=== PATIENT | female | born 1995 | race Caucasian/White ===

== ENCOUNTER 2024-06-15 20:41 | Emergency (ER) | payer OTHER, SELFPAY ==
[2024-06-15 20:47] VITALS: BP 106/64; PULSE 86; RESP 18; TEMP 36.4; O2SAT 99; BMI 18.3
--- NOTE | 2024-06-15 20:52 | ED_ITS ---
HPI - General Adult General Chief complaint: General Medical Stated complaint: abd pain / headaches Time Seen by Provider: 06/16/24 00:25 Source: patient Mode of arrival: ambulatory Limitations: no limitations History of Present Illness ED Provider: HPI narrative: Patient with chronic epigastric pain for last 5 years off and on gets worse when she eats something localized to epigastric area sometimes gets nausea has not seen any wood heel attacher or PCP for this no pain in the right upper quadrant no vomiting no fever no chills patient comes here was having more pain lately for last 2 days patient does not drink alcohol or smokes Related Data Previous Rx's ?Medication ?Instructions ?Recorded omeprazole 40 mg capsule,delayed 40 mg PO DAILY #30 caps 06/16/24 release sucralfate 1 gram tablet 1 g PO TID #90 tabs 06/16/24 Allergies Allergy/AdvReac Type Severity Reaction Status Date / Time No Known Allergies Allergy Verified 06/16/24 14:31 Review of Systems 2 Review of Systems: Yes all other systems are reviewed and are negative [facility] Social History Social History Do you have a plan to hurt others: No Plan Physical Exam ED Vital Signs: Vital Signs - 24 hr 06/15/24 20:47 06/16/24 00:12 06/16/24 01:50 Temperature 97.6 F 98.3 F 97.7 F Pulse Rate 86 76 77 Respiratory Rate 18 16 16 Blood Pressure 106/64 93/61 90/57 L Pulse Oximetry 99 96 98 Oxygen Delivery Method Room Air Room Air Room Air 06/16/24 01:51 Temperature 97.7 F Pulse Rate 77 Respiratory Rate 16 Blood Pressure 90/57 L Pulse Oximetry 98 Oxygen Delivery Method Room Air BMI result Body Mass Index 18.3 Appearance: Alert. Oriented X3. No acute distress. Eyes: No pallor or icterus ENT: Pharynx normal. Oral Mucosa moist Neck: Normal inspection. Neck supple. CVS: Normal heart rate and rhythm. Pulses normal. Respiratory: No respiratory distress. Equal air entry bilateral, no wheezing/rales/rhonchi Abdomen: Soft and tenderness in epigastric area Bowel sounds are present, no mass palpable, no CVA tenderness Edmonds sign neg Skin: Skin warm and dry. Normal skin color. Normal skin turgor. Extremities: No lower extremity edema. No calf tenderness Neuro: Oriented X 3. Course Course Course Narrative: RMBlake; 28-year-old female history of migraine presents to ED for abdominal pain with nausea vomiting and also headache migraine exacerbation. Patient denies any URI symptoms or genitourinary symptoms. Labs UA SARs strep ordered Medications Administered Discontinued Medications Generic Name Dose Route Start Last Admin Trade Name Freq PRN Reason Stop Dose Admin Al Hydroxide/Mg Hydroxide 30 ml 06/16/24 00:41 06/16/24 00:52 Magnesium Hydrox/Alum Hydrox 30 Ml Oral.Susp PO 06/16/24 00:42 30 ml ONCE ONE Administration Omeprazole 40 mg 06/16/24 00:41 06/16/24 00:52 Omeprazole 40 Mg Capsule.Dr PO 06/16/24 00:42 40 mg ONCE ONE Administration Medical Decision Making Medical Decision Making [facility] Narrative: Patient likely with gastritis no pain in the right upper quadrant no nausea no vomiting at this time patient feels better after taking Maalox and Pepcid will discharge patient home on Prilosec and sucralfate advised to follow with GI Differential Diagnosis Differential Diagnoses: The differential diagnosis associated with the presentation includes Gastritis/pancreatitis/cholecystitis/urine Lab Data [facility] Lab Attestation statement: I reviewed the patient's lab results. 06/15/24 21:18 06/15/24 21:18 Labs: Lab Results 06/15/24 06/15/24 06/16/24 Range/Units 21:17 21:18 00:50 WBC 5.5 (4.8-10.8) X10*3/uL RBC 4.79 (4.20-5.50) X10*6/uL Hgb 12.0 (12.0-16.0) g/dl Hct 37.9 (37.0-47.0) % MCV 79.1 L (80.0-98.0) fL MCH 25.1 L (27.0-33.0) pg MCHC 31.7 (31.0-35.0) g/dl RDW 18.0 H (11.0-16.0) % Plt Count 168 (160-400) X10*3/uL MPV 9.7 (9.4-12.3) fL Immature Gran % (Auto) 0.2 (0.0-0.4) % Neut % (Auto) 80.5 H (45-73) % Lymph % (Auto) 9.1 L (20-40) % [place] % (Auto) 7.3 (2-11) % Eos % (Auto) 2.7 (0-4) % Baso % (Auto) 0.2 (0-2) % Lymph # (Auto) 0.5 L (1.2-4.9) X10*3/uL [place] # (Auto) 0.4 (0.1-1.2) X10*3/uL Eos # (Auto) 0.2 (0.0-0.4) X10*3/uL Baso # (Auto) 0.0 (0.0-0.2) X10*3/uL Abs Immat Gran (auto) 0.01 (0.00-0.03) X10*3/uL Absolute Neuts (auto) 4.4 (2.0-8.3) x10*3/uL Absolute Nucleated RBC 0.000 (0.0-0.012) X10*3/uL Nucleated RBC % (auto) 0.0 (0.0-0.2) /100WBC Sodium 139 (135-145) mmol/L Potassium 3.8 (3.3-5.1) mmol/L Chloride 107 (96-108) mmol/L Carbon Dioxide 24 (22-29) mmol/L Anion Gap 12 (12-20) BUN 19 H (9-16) mg/dL Creatinine 0.72 (0.5-1.4) mg/dL Estim Creat Clear Calc 93.3 Estimated GFR > 60 Random Glucose 104 (60-115) mg/dL Calcium 8.6 (8.4-10.2) mg/dL Total Bilirubin 0.7 (0.0-1.0) mg/dL AST 21 (5-31) U/L ALT 25 (0-31) U/L Alkaline Phosphatase 44 (39-117) U/L Total Protein 7.7 (6.5-8.0) g/dL Albumin 4.3 (3.5-5.0) g/dL Lipase 14 (8-78) U/L Beta HCG, Quant < 2 mIU/mL Urine Color Yellow Urine Appearance Clear Urine pH 6.0 (5.0-9.0) Ur Specific [place] >= 1.030 H (1.005-1.025) Urine Protein 30 (1+) H (Neg-Trace) mg/dL Urine Glucose (UA) Negative (Negative) mg/dL Urine Ketones Negative (Negative) mg/dL Urine Blood Negative (Negative) Urine Nitrite Negative (Negative) Ur Leukocyte Esterase Negative (Negative) Urine RBC 0-2 (0-2) /HPF Urine WBC 0-5 (0-5) /HPF Ur Squamous Epith Cells 11-20 (0-2) /HPF Urine Bacteria None Seen (None Seen) Hyaline Casts 3-5 (0-2) /LPF Influenza Type A (PCR) NEGATIVE (Negative) Influenza Type B (PCR) NEGATIVE (Negative) RSV RNA Qual (PCR) NEGATIVE (Negative) SARS-CoV-2 RNA (RT-PCR) NEGATIVE (Negative) S. pyogenes GrpA SUDHEER Negative (Negative) Discharge Plan Discharge Clinical Impression: Acute gastritis Patient Disposition: Home, Self-Care Instructions: Gastritis (ED) Additional Instructions: Avoid fried and spicy food Medication for acid reflux as prescribed Follow up with wood heel attacher/PCP Prescriptions: New omeprazole 40 mg capsule,delayed release(DR/EC) 40 mg PO DAILY Qty: 30 0RF sucralfate 1 gram tablet 1 g PO TID Qty: 90 0RF Referrals: Maria Luz Schulz MD [Physician] - 2 weeks Interventions: ED Discharge Assessment Last Done: 06/16/24 01:51 Discharge Date/Time: 06/16/24 01:52 Print Language: Serbian
[2024-06-15 21:36] LABS: MANUAL DIFF FLAG NO
[2024-06-15 21:38] LABS: Basophils Percent Auto 0.2 % (0-2); Eosinophils Absolute Auto 0.2 X10*3/uL (0.0-0.4); Eosinophils Percent Auto 2.7 % (0-4); Hematocrit 37.9 % (37.0-47.0); Imm Gran Abs Auto 0.01 X10*3/uL (0.00-0.03); Imm Gran Pct Auto 0.2 % (0.0-0.4); Lymphocytes Absolute Auto 0.5 X10*3/uL (1.2-4.9); Lymphocytes Percent Auto 9.1 % (20-40); Mean Corpuscular HGB Conc 31.7 g/dl (31.0-35.0); Mean Corpuscular Hemoglobin 25.1 pg (27.0-33.0); Mean Corpuscular Volume 79.1 fL (80.0-98.0); Mean Platelet Volume 9.7 fL (9.4-12.3); Monocytes Absolute Auto 0.4 X10*3/uL (0.1-1.2); Monocytes Percent Auto 7.3 % (2-11); Neutrophils Absolute Auto 4.4 x10*3/uL (2.0-8.3); Neutrophils Percent Auto 80.5 % (45-73); Platelet Count 168 X10*3/uL (160-400); Red Blood Count 4.79 X10*6/uL (4.20-5.50); White Blood Count 5.5 X10*3/uL (4.8-10.8)
[2024-06-15 21:58] LABS: Alanine Aminotransferase 25 U/L (0-31); Albumin Level 4.3 g/dL (3.5-5.0); Alkaline Phosphatase 44 U/L (39-117); Anion Gap 12 (12-20); Aspartate Amino Transferase 21 U/L (5-31); Bilirubin Total 0.7 mg/dL (0.0-1.0); Blood Urea Nitrogen 19 mg/dL (9-16); Calcium 8.6 mg/dL (8.4-10.2); Carbon Dioxide 24 mmol/L (22-29); Chloride 107 mmol/L (96-108); Creatinine Clr Calc Pharmacy 93.3; Estimated Glomerular Filt Rate > 60; Glucose Random 104 mg/dL (60-115); Lipase 14 U/L (8-78); Potassium 3.8 mmol/L (3.3-5.1); Sodium 139 mmol/L (135-145); Total Protein 7.7 g/dL (6.5-8.0)
[2024-06-15 22:00] LABS: IDNOW Serial# 58CA691E; Strep A Nucleic Acid Negative (Negative)
[2024-06-15 22:00] LABS: HCG Quantitative < 2 mIU/mL
[2024-06-15 23:59] LABS: Influenza A PCR NEGATIVE (Negative); Influenza B PCR NEGATIVE (Negative); Resp Syncy Virus RNA Qual PCR NEGATIVE (Negative); SARS COV2 PCR INHOUSE NEGATIVE (Negative)
[2024-06-16 00:12] VITALS: BP 93/61; PULSE 76; RESP 16; TEMP 36.8; O2SAT 96
--- OUTSIDE RECORDS SUMMARY | 2024-06-16 00:25 | XMS_ITS | Clinical Summary ---
Author Organization [facility] Address [address] [place] [address] Care Team Providers Care Vegetable Trimmer Name Role Phone Daniella Prasad DMD Primary Care Provider [phone] Source Comments PLEASE NOTE, if this patient is a minor, it may be UNLAWFUL to discuss sensitive information that is contained in these records (such as FAMILY PLANNING, MENTAL HEALTH or SUBSTANCE ABUSE) with the minor patient's parent or other person without the patient's specific authorization.[facility] Medications chlorhexidine gluconate (PERIDEX) 0.12 % solutionIndicati ons:Pericoroniti s Swish and spit 15 mL 2 (two) times daily 473 mL 08/25/2019 Active acetaminophen (TYLENOL) 500 mg tabletIndication s:Pericoronitis Take 1 Tab by mouth every 6 (six) hours as needed for pain 60 Tab 08/25/2019 Active ibuprofen 600 mg tablet Take 1 Tablet by mouth 4 (four) times daily as needed for pain 20 Tablet 12/23/2020 Active Social History Tobacco Use Types Packs/Day Years Used Date Smoking Tobacco: Never Assessed Social Connections Answer Date Recorded Social Connections and Isolation 0 12/23/2020 Financial Resource Strain Answer Date R ecorded Financial Resource Strain 0 2020 Stress Answer Date Recorded Stress 0 12/23/2020 Physical Activity Answer Date Recorded Physical Activity 0 12/23/2020 Food Insecurity Answer Date Recorded Food 0 12/23/2020 Transportation Needs Answer Date Record ed Transportation 0 12/23/2020 Housing Stability Answer Date Recorded Housing 0 12/23/2020 Safety and Environment Answer Date Thompson rded Safety 0 12/23/2020 Utilities Answer Date Recorded Utilities 0 12/23/2020 Employment Answer Date Recorded Employment 0 12/23/2020 Comments Unknown Sex and Gender Information Value Date Recorded Sex Assigned at Not on file Legal Sex Female 7:13 AM PDT Gender Identity Not on file Sexual Orientation Not on file Plan of Treatment Not on file Insurance [employer] [place] DENT[place] Care Teams Vegetable Trimmer Relationship Specialty Start Date End Date Daniella Prasad DMD [address] [place] [address] PCP - General 06/18/20
--- NOTE | 2024-06-16 00:51 | MHC.EDTECH ---
This pct just assumed care of Patient ,vitals taken ,Patient urine sample collected and sent to lab
[2024-06-16] MEDS: Omeprazole 40 MG CAPSULE.DR PO (00:52)
[2024-06-16] MEDS: Magnesium Hydrox/Alum Hydrox 30 ML ORAL.SUSP PO (00:52)
[2024-06-16 01:02] LABS: Appearance Urine Clear; Color Urine Yellow; Glucose Urine UA Negative (Negative); Leukocyte Esterase Urine Negative (Negative); Nitrite Urine Negative (Negative); Specific Gravity - Urine >= 1.030 (1.005-1.025); UMIC TRIGGER UACC YES; Urine Blood Negative (Negative); Urine Ketones Negative (Negative); Urine Protein 30 (1+) mg/dL (Neg-Trace)
[2024-06-16 01:14] LABS: Bacteria Urine None Seen (None Seen); RBC Urine 0-2 /HPF (0-2); WBC Urine 0-5 /HPF (0-5)
[2024-06-16 01:50] VITALS: BP 90/57; PULSE 77; RESP 16; TEMP 36.5; O2SAT 98
[2024-06-16 01:51] VITALS: BP 90/57; PULSE 77; RESP 16; TEMP 36.5; O2SAT 98
== END 2024-06-16 01:52 | disposition home or self-care (01) ==
PROVIDERS: Physician Assistant; Emergency Provider Internal Medicine; PCP Internal Medicine
DX: K29.70 Gastritis, unspecified, without bleeding (principal); R11.2 Nausea with vomiting, unspecified; R51.9 Headache, unspecified; Z03.818 Encounter for observation for suspected exposure to other biological agents ruled out
CPT/HCPCS: 0241U; 80053; 81001; 81003; 83690; 84702; 85025; 87651; 99283

== ENCOUNTER 2024-06-16 14:14 | Emergency (ER) | payer OTHER, SELFPAY ==
--- NOTE | ~2024-06-16 | CT_ITS ---
EXAMINATION: CT HEAD WITHOUT IV CONTRAST HISTORY: intractable headaches. TECHNIQUE: Unenhanced helical CT of the head was performed per standard departmental protocol. Coronal and sagittal reformats of the head were also evaluated. One or more of the following techniques was used for dose reduction: Automated exposure control, adjustment of the mA and/or kV according to patient size, use of iterative reconstruction technique. DLP: 585 mGy-cm COMPARISON: There are no prior studies for comparison. FINDINGS: BRAIN: The brain parenchyma is unremarkable. There is normal barton/white differentiation. The ventricular system is normal in size and configuration. There is no mass effect or midline shift. No intra- or extra-axial fluid collections are identified. SINUSES: The visualized paranasal sinuses are clear. The mastoid air cells and middle ear cavities are well pneumatized. ORBITS: The visualized orbits are unremarkable. BONES/SOFT TISSUES: The extracranial soft tissues are unremarkable. The calvarium is intact. No suspicious lytic or sclerotic lesions. CT/CT head/brain wo IV con IMPRESSION: Unremarkable unenhanced head CT. Electronically signed by: Tobin Millan MD 06/16/2024 03:12 PM EDT
[2024-06-16 14:28] VITALS: BP 92/47; PULSE 87; RESP 18; TEMP 36.6; O2SAT 98; BMI 18.1
[2024-06-16 16:48] LABS: MANUAL DIFF FLAG NO
[2024-06-16 16:53] LABS: Basophils Percent Auto 0.3 % (0-2); Eosinophils Absolute Auto 0.1 X10*3/uL (0.0-0.4); Eosinophils Percent Auto 4.8 % (0-4); Hematocrit 34.4 % (37.0-47.0); Hemoglobin 11.1 g/dl (12.0-16.0); Imm Gran Abs Auto 0.01 X10*3/uL (0.00-0.03); Imm Gran Pct Auto 0.3 % (0.0-0.4); Lymphocytes Absolute Auto 0.6 X10*3/uL (1.2-4.9); Lymphocytes Percent Auto 22.1 % (20-40); Mean Corpuscular HGB Conc 32.3 g/dl (31.0-35.0); Mean Corpuscular Hemoglobin 25.5 pg (27.0-33.0); Mean Corpuscular Volume 79.1 fL (80.0-98.0); Mean Platelet Volume 9.5 fL (9.4-12.3); Monocytes Absolute Auto 0.4 X10*3/uL (0.1-1.2); Monocytes Percent Auto 13.8 % (2-11); Neutrophils Absolute Auto 1.7 x10*3/uL (2.0-8.3); Neutrophils Percent Auto 58.7 % (45-73); Platelet Count 149 X10*3/uL (160-400); Red Blood Count 4.35 X10*6/uL (4.20-5.50); Red Cell Distribution Width 17.6 % (11.0-16.0); White Blood Count 2.9 X10*3/uL (4.8-10.8)
[2024-06-16 17:11] LABS: Alanine Aminotransferase 19 U/L (0-31); Albumin Level 4.1 g/dL (3.5-5.0); Alkaline Phosphatase 44 U/L (39-117); Anion Gap 10 (12-20); Aspartate Amino Transferase 18 U/L (5-31); Bilirubin Total 0.3 mg/dL (0.0-1.0); Blood Urea Nitrogen 16 mg/dL (9-16); Calcium 8.7 mg/dL (8.4-10.2); Carbon Dioxide 25 mmol/L (22-29); Chloride 109 mmol/L (96-108); Creatinine Clr Calc Pharmacy 106.1; Estimated Glomerular Filt Rate > 60; Glucose Random 101 mg/dL (60-115); HCG Quantitative < 2 mIU/mL; Magnesium 2.4 mg/dL (1.6-2.6); Potassium 3.9 mmol/L (3.3-5.1); Sodium 140 mmol/L (135-145); Total Protein 7.4 g/dL (6.5-8.0)
[2024-06-16 17:26] LABS: Influenza A PCR NEGATIVE (Negative); Influenza B PCR NEGATIVE (Negative); Resp Syncy Virus RNA Qual PCR NEGATIVE (Negative); SARS COV2 PCR INHOUSE NEGATIVE (Negative)
--- OUTSIDE RECORDS SUMMARY | 2024-06-16 22:05 | XMS_ITS | Clinical Summary ---
Author Organization [facility] it Address [address] [place] [address] Care Team Providers Care Estate Planner Name Role Phone Ritchie Diane MD Primary Care Provi stephen Surgical History Surgery Date Site/Laterality Comments OTHER SURGICAL HISTORY PROCEDURE: [place] UNLISTED OPHTHALMOLOGICAL SERVICE/PROCEDURE; COMMENT: x2 in [place]. poor historian with type of surgery or congenital eye defect SECTION 05/29/2016 PROCEDURE: HISTORICAL DELIVERY; COMMENT: 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 right eye more stable. 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; COMMENT: left leg posterior - calf Family History Medical History Relation Name Comments No Known Problems Brother 1 No Known Problems Brother 2 No Known Problems Father No Known Problems Maternal Grandfather No Known Problems Maternal Grandmother No Known Problems Mother No Known Problems Paternal Grandfather No Known Problems Paternal Grandmother No Known Problems Sister 1 No Known Problems Sister 2 No Known Problems Sister 3 Breast cancer Neg Hx Colon cancer Neg Hx Ovarian cancer Neg Hx Relation Name Status Comments Brother 1 Alive Brother 2 Alive Father Alive Maternal Grandfather Alive Maternal Grandmother Alive Mother Alive Paternal Grandfather Paternal Grandmother Sister 1 Alive Sister 2 Alive Sister 3 Alive Social History Tobacco Use Types Packs/Day Years Used Date Smoking Tobacco: Never Smokeless Tobacco: Never Alcohol Use Standard Drinks/Week Comments No 0 (1 standard drink = 0.6 oz pur e alcohol) Comments Unknown Sex and Gender Information Value Date Recorded Sex Assigned at Not on file Legal Sex Female 1:37 AM EST Gender Identity Not on file Sexual Orientation Not on file Obstetrics History Plan of Treatment Health Maintenance Due Date Last Done Comments Hepatitis B Vaccines (1 of 3 - 19+ 3-dose series) 2013 Cervical Cancer Screening: P ap Smear 10/31/2020 10/31/2017 COVID-19 Vaccine (1 - 2023-2 5 season) 2023 Influenza Vaccine (#1) 2023 DTaP,Tdap,and Td Vaccines (2 - Td or Tdap) 11/15/2027 11/14/2017 HIB Vaccines Aged Out No longer eligi ble based on patient's age to complete this topic HPV Vaccines Aged Out No longer eligi ble based on patient's age to complete this topic Hepatitis A Vaccines Aged Out No long er eligible based on patient's age to complete this topic IPV Vaccines Aged Out No longer eligi ble based on patient's age to complete this topic MMR Vaccines Aged Out No longer eligi ble based on patient's age to complete this topic Meningococcal ACWY Vaccine Aged Out N o longer eligible based on patient's age to complete this topic Meningococcal B Vacine Aged Out No lo nger eligible based on patient's age to complete this topic Pneumococcal Vaccine: Pediat rics (0 to 5 Years) and At-Risk Patients (6 to 64 Years) Aged Out No longer eligi ble based on patient's age to complete this topic RSV Immunization Patients Un stephen 20 months Aged Out No longer eligible b ased on patient's age to complete this topic Varicella Vaccines Aged Out No longer eligible based on patient's age to complete this topic Procedures Procedure Name Priority Date/Time Associated Diagnosis Comments PAP SMEAR Routine 10/31/2017 from Last 3 Months or Most Recently Relevant to Health Maintenance Results * Pap smear (10/31/2017) 10/31/2017 Narrative HISTORICAL TESTING LAB RESULTING AGENCY - 11/06/2017 1:00 PM EDT [id number] THINPREP PAP, IMAGED: NEGATIVE FOR SQUAMOUS INTRAEPITHELIAL LESION AND MALIGNANCY ??. MARIANNA PROCTOR(ASCP) (CASE ELECTRONICALLY SIGNED 11 06 2017) ADEQUACY: SATISFACTORY. ENDOCERVICAL/TRANSFORMATION ZONE COMPONENT PRESENT. SOURCE: THINPREP PAP HPV IF ASCUS, CERVICAL, IMAGED: CLINICAL INFORMATION: HPV IF DIAGNOSIS OF ASCUS. Z12.4, Z34.82, , PAP HX: NEGATIVE Karlene Jackson CN LAB CYTOLOGY ORDERABLES Final Result HISTORICAL TESTING LAB RESULTING AGENCY from Last 3 Months or Most Recently Relevant to Health Maintenance Care Teams Estate Planner Relationship Specialty Start Date End Date Ritchie Diane MD [address] [place] [address] [place] [address] PCP - General Internal Medicine 11/07/18
--- OUTSIDE RECORDS SUMMARY | 2024-06-16 22:07 | XMS_ITS | Encounter Summary ---
Author Organization [employer] Address [address] [facility] 7 [place] [address] Care Team Providers Care Collar Feller Name Role Phone Heather Cloud MD Primary Care Provider [phone] Reason for Visit * Reason Onset Date Comments Nurse Triage 06/16/2024 Encounter Details Date Type Department Care Team (Late st Contact Info) Description 06/16/2024 Telephone [facility] [address] [place] [address] Heather Cloud MD [address] [place] [address] Nurse Triage Social History Tobacco Use Types Packs/Day Years Used Date Smoking Tobacco: Never Assessed Comments Unknown Sex and Gender Information Value Date Recorded Sex Assigned at Female 02/06/2022 10:39 AM EDT Legal Sex Female 10:39 AM EDT Gender Identity Female 02/06/2022 10:39 AM EDT Sexual Orientation Straight 02/06/2022 10 :39 AM EDT documented as of this encounter Miscellaneous Notes * Telephone Encounter - Alecia Art RN - 06/16/2024 12:20 PM EDT Call returned to Bonnie Brown to triage below. Reports having STEVENSON x 2 weeks. Per pt in past 3 days having vomiting. Pt denies any light sensitivity or sound sensitivity. Per pt STEVENSON is frontal. Pt denies any worsening blurry vision or eye pain. Pt denies any fever. Pt reports using Excedrin, ibuprofen. Denies any bloody or coffee ground emesis. No ear pain or ST. Pt advised of disposition, no appts in [facility]. Agrees to seek [facility]. Reviewed [facility] operating hours and that wait times vary. Reviewed home care advise, ER precautions and reasons to call back. Protocol Used: Headache (Adult) Protocol-Based Disposition: Callback or Video Visit by PCP within 1 Hour Video visit offer not recorded Positive Triage Question: * Severe headache and vomiting * All higher-acuity triage questions were negative Care Advice Discussed: * Reassurance and Education - Migraine Headache * Cold Pack for Headache * Reasons To Call Back - Severe headache lasts over 2 hours after pain medicine - Stiff neck occurs (can't touch chin to chest) - You become worse * Telephone Encounter - Rahul Wilhelm - 06/16/2024 11:14 AM EDT Symptom: Headache Outcome: Schedule an urgent appointment (within 4 hours) or talk to a nurse or provider soon Reason: Getting worse The caller accepted this outcome. documented in this encounter Plan of Treatment Not on file documented as of this encounter Visit Diagnoses Not on filedocumented in this encounter Care Teams Collar Feller Relationship Specialty Start Date End Date Heather Cloud MD [address] [place] [id number] PCP - General Internal Medicine 02/04/21 documented as of this encounter
--- OUTSIDE RECORDS SUMMARY | 2024-06-16 22:07 | XMS_ITS | Encounter Summary ---
Author Organization [employer] Address [address] [place] [address] 7[address] [place] [address] Care Team Providers Care Marketing Area Manager Name Role Phone Heather Cloud MD Primary Care Provider [phone] Encounter Details Date Type Department Care Team (Late st Contact Info) Description 06/16/2024 Orders Only [facility] External Provider, [facility] Social History Tobacco Use Types Packs/Day Years Used Date Smoking Tobacco: Never Assessed Comments Unknown Sex and Gender Information Value Date Recorded Sex Assigned at Female 02/06/2022 10:39 AM EDT Legal Sex Female 10:39 AM EDT Gender Identity Female 02/06/2022 10:39 AM EDT Sexual Orientation Straight 02/06/2022 10 :39 AM EDT documented as of this encounter Plan of Treatment Not on file documented as of this encounter Procedures Procedure Name Priority Date/Time Associated Diagnosis Comments CT HEAD WO CONTRAST Routine 06/16/2024 2 :30 PM EDT documented in this encounter Results * CT Head w/o Contrast (06/16/2024 2:30 PM EDT) Anatomical Region Laterality Modality Head, Neck Computed Tomogra phy 06/16/2024 2:30 PM EDT Narrative 06/16/2024 3:14 PM EDT ? [facility] ?[address] ?[place] [address] ? CT Scan Report ? Signed ? Patient: Nesterchuk,Bonnie ?MR#: [id number] ?? [id number] ? : 1995 ?Acct:[id number] ? Age/Sex: 28 / F ?ADM Date: 03/10/25 ? Loc: HO.ED ? Attending Dr: ? Ordering Physician: Halle Chua ?? Date of Service: 06/16/24 ?? Procedure(s): CT head/brain wo IV con ?? Accession Number(s): [id number] ? cc: Ritchie Diane MD; Halle Chua ? Report Number: ?? [id number]: Total DLP = ??585.00 mGy-cm ?? EXAMINATION: CT HEAD WITHOUT IV CONTRAST ? HISTORY: intractable headaches. ? TECHNIQUE: ? Unenhanced helical CT of the head was performed per standard ?? departmental protocol. Coronal and sagittal reformats of the head were ?? also evaluated. One or more of the following techniques was used for ?? dose reduction: Automated exposure control, adjustment of the mA and/or ?? kV according to patient size, use of iterative reconstruction technique. ? DLP: 585 mGy-cm ? COMPARISON: There are no prior studies for comparison. ? FINDINGS: ? BRAIN: ??The brain parenchyma is unremarkable. There is normal ?? barton/white differentiation. The ventricular system is normal in size ?? and configuration. ??There is no mass effect or midline shift. ??No ?? intra- or extra-axial fluid collections are identified. ? SINUSES: The visualized paranasal sinuses are clear. ??The mastoid air ?? cells and middle ear cavities are well pneumatized. ? ORBITS: The visualized orbits are unremarkable. ? BONES/SOFT TISSUES: The extracranial soft tissues are unremarkable. The ?? calvarium is intact. No suspicious lytic or sclerotic lesions. ? CT/CT head/brain wo IV con ?? IMPRESSION: ?? Unremarkable unenhanced head CT. ? Electronically signed by: ??Tobin Millan MD ??06/16/2024 03:12 PM EDT ?? RP ? Dictated By: ?Tobin Millan MD ? Signed By: ?<Electronically signed by Tobin Millan MD in OV> ?06/16/24 1512 ? DD/ 1430 ? TD/TT: 06/16/24 1507 ? Plug Stitcher: ? Procedure Note Lam, Image - 06/16/[address] [address] [address] Scan Report Signed Patient: Lauren Brown#: [id number] : 1995Acct:[id number] Age/Sex: 28 / FADM Date: 06/16/24 Loc: HO.ED Attending Dr: Ordering Physician: Halle Chua Date of Service: 06/16/24 Procedure(s): CT head/brain wo IV con Accession Number(s): [id number] cc: Ritchie Diane MD; Halle Chua Report Number: [id number]: Total DLP = 585.00 mGy-cm EXAMINATION: CT HEAD WITHOUT IV CONTRAST HISTORY: intractable headaches. TECHNIQUE: Unenhanced helical CT of the head was performed per standard departmental protocol. Coronal and sagittal reformats of the head were also evaluated. One or more of the following techniques was used for dose reduction: Automated exposure control, adjustment of the mA and/or kV according to patient size, use of iterative reconstruction technique. DLP: 585 mGy-cm COMPARISON: There are no prior studies for comparison. FINDINGS: BRAIN: The brain parenchyma is unremarkable. There is normal barton/white differentiation. The ventricular system is normal in size and configuration. There is no mass effect or midline shift. No intra- or extra-axial fluid collections are identified. SINUSES: The visualized paranasal sinuses are clear. The mastoid air cells and middle ear cavities are well pneumatized. ORBITS: The visualized orbits are unremarkable. BONES/SOFT TISSUES: The extracranial soft tissues are unremarkable. The calvarium is intact. No suspicious lytic or sclerotic lesions. CT/CT head/brain wo IV con IMPRESSION: Unremarkable unenhanced head CT. Electronically signed by: Tobin Millan MD 06/16/2024 03:12 PM EDT RP Dictated By: Tobin Millan MD Signed By: <Electronically signed by Tobin Millan MD in OV> 06/16/24 1512 DD/ 1430 TD/TT: 06/16/24 1507 Plug Stitcher: [facility] External Provider IMG CT PROCEDURES Final Result documented in this encounter Visit Diagnoses Not on filedocumented in this encounter Care Teams Marketing Area Manager Relationship Specialty Start Date End Date Heather Cloud MD [address] [place] [id number] PCP - General Internal Medicine 02/04/21 documented as of this encounter
--- OUTSIDE RECORDS SUMMARY | 2024-06-16 22:07 | XMS_ITS | Clinical Summary ---
Author Organization [employer] Address [address] [facility] 7[address] [place] [address] Care Team Providers Care Multifocal Button Inspector Name Role Phone Heather Cloud MD Primary Care Provider [phone] Encounters Date Type Department Care Team Description 06/16/2024 Orders Only [facility] External Provider, [facility] 06/16/[address] [address] Heather Cloud MD Nurse Triage from Last 3 Months Social History Tobacco Use Types Packs/Day Years Used Date Smoking Tobacco: Never Assessed Comments Unknown Sex and Gender Information Value Date Recorded Sex Assigned at Female 02/06/2022 10:39 AM EDT Legal Sex Female 10:39 AM EDT Gender Identity Female 02/06/2022 10:39 AM EDT Sexual Orientation Straight 02/06/2022 10 :39 AM EDT Last Filed Vital Signs Vital Sign Reading Time Taken Comments Blood Pressure 100/66 03/23/2021 12:12 AM EST Pulse 79 03/23/2021 12:12 AM EST Temperature - - Respiratory Rate - - Oxygen Saturation - - Inhaled Oxygen Concentration - - Weight 51.9 kg (114 lb 6.4 oz) 02/04/2021 12:10 AM EDT Height 168.9 cm (5' 6.5 ) 02/04/2021 12:10 AM ED T Body Mass Index 18.19 02/04/2021 12:10 AM EDT Plan of Treatment Health Maintenance Due Date Last Done Comments Depression Screening 1994 Alcohol/Substance Use Screening 2006 Tobacco Screening 2006 Family Planning (PISQ) 2009 DTaP/Tdap/Td Vaccines (1 - Tdap) 2013 Hepatitis B Vaccines (1 of 3 - 19+ 3-dose series) 2013 Pap Smear 11/21/2015 COVID-19 Vaccine (1 - 2023-2 5 season) 2023 Influenza Vaccine (#1) 2023 Zoster Vaccines (1 of 2) 2044 RSV Patients and Pa tients Aged 60 years or older (1 - 1-dose 75+ series) 2069 HIB Vaccines Aged Out No longer eligi [...] patient's age to complete this topic Meningococcal Vaccine Aged Out No zayra bell eligible based on patient's age to complete this topic Pneumococcal Vaccine: Pediat rics (0 to 5 Years) and At-Risk Patients (6 to 49) Years) Aged Out No longer eligible b ased on patient's age to complete this topic RSV under 20 months Aged Out No longe r eligible based on patient's age to complete this topic Rotavirus Vaccines Aged Out No longer eligible based on patient's age to complete this topic Procedures Procedure Name Priority Date/Time Associated Diagnosis Comments CT HEAD WO CONTRAST Routine 06/16/2024 2 :30 PM EDT from Last 3 Months Results * CT Head w/o Contrast (06/16/2024 2:30 PM EDT) Anatomical Region Laterality Modality Head, Neck Computed Tomogra phy 06/16/2024 2:30 PM EDT Narrative 06/16/2024 3:14 PM EDT ? [facility] ?[address] ?[place] [address] ? CT Scan Report ? Signed ? Patient: Nesterchuk,Bonnie ?MR#: [id number] ?? [id number] ? : 1995 ?Acct:[id number] ? Age/Sex: 28 / F ?ADM Date: 03/10/25 ? Loc: HO.ED ? Attending Dr: ? Ordering Physician: Halle Chua ?? Date of Service: 06/16/24 ?? Procedure(s): CT head/brain wo IV con ?? Accession Number(s): [id number] ? cc: Ritchie Diane MD; Halle Chua ? Report Number: ?? [id number]: Total DLP = ??585.00 mGy-cm ?? EXAMINATION: [...] signed by Tobin Millan MD in OV> ?// 1512 ? DD/DT: //25 1430 ? TD/TT: 06/16/24 1507 ? Tread Tuber Machine Operator: ? Procedure Note Donotuseinterpreter, Image - 06/16/[address] [address] [address] Scan Report Signed Patient: Lauren Brown#: [id number] : 1995Acct:[id number] Age/Sex: 28 / FADM Date: 06/16/24 Loc: HO.ED Attending Dr: Ordering Physician: Halle Chua Date of Service: 06/16/24 Procedure(s): CT head/brain wo IV con Accession Number(s): [id number] cc: Ritchie Diane MD; Halle Chua Report Number: [id number]: Total DLP = 585.00 mGy-cm EXAMINATION: CT [...] 06/16/24 1512 DD/ 1430 TD/TT: 06/16/24 1507 Tread Tuber Machine Operator: [facility] External Provider IMG CT PROCEDURES Final Result from Last 3 Months Care Teams Multifocal Button Inspector Relationship Specialty Start Date End Date Heather Cloud MD [address] [place] [id number] PCP - General Internal Medicine 02/04/21
[2024-06-16 22:56] VITALS: BP 118/73; PULSE 83; RESP 16; TEMP 36.5; O2SAT 100
[2024-06-16] MEDS: Acetaminophen 1,000 MG/100 ML PIGGYBACK 400 MG IV (23:26)
[2024-06-16] MEDS: Ketorolac Tromethamine 15 MG/ML VIAL IVPUSH (23:36)
[2024-06-16] MEDS: Prochlorperazine Edisylate 10 MG/2 ML VIAL IVPUSH (23:37)
[2024-06-16] MEDS: dexAMETHasone sod phosphate 10 MG/ML VIAL IVPUSH (23:37)
[2024-06-16] MEDS: diphenhydrAMINE HCL 50 MG/ML VIAL 25 MG IVPUSH (23:37)
[2024-06-17 01:11] VITALS: BP 101/63; PULSE 89; RESP 16; TEMP 36.7; O2SAT 98
--- NOTE | 2024-06-17 02:17 | ED_ITS ---
HPI - Headache General Chief Complaint: Headache Stated Complaint: headache Time Seen by Provider: 06/16/24 21:48 Source: patient Limitations: no limitations History of Present Illness ED Provider: Dora Monson PA-C HPI Narrative: 28-year-old female with chronic headaches presents with a headache x1 week. Headache is right-sided, retro-orbital, severe. It has been constant for the past week. Associated phonophobia, photophobia, dizziness and nausea. Patient does state the headache improved to some degree when she takes [id number] Tylenol, but then returns. Denies neck pain, recent illness, cough or cold symptoms, fever. Patient states she has had extensive assessment in the past by Neurology, they have not determine the nature of her headaches; she has been struggling with her headaches for 3 years. Related Data Previous Rx's ?Medication ?Instructions ?Recorded omeprazole 40 mg capsule,delayed 40 mg PO DAILY #30 caps 06/16/24 release sucralfate 1 gram tablet 1 g PO TID #90 tabs 06/16/24 ketorolac 10 mg tablet 10 mg PO Q6H PRN pain #20 tabs 06/17/24 prochlorperazine maleate 10 mg 10 mg PO Q8H PRN nausea and 06/17/24 tablet (Compazine) vomiting #10 tabs Allergies Allergy/AdvReac Type Severity Reaction Status Date / Time No Known Allergies Allergy Verified 06/16/24 14:31 Review of Systems 2 Review of Systems: Yes all other systems are reviewed and are negative Constitutional: Constitutional: Denies fatigue, Denies fever(s) and Denies headache(s) Eyes: Eyes: Reports blurry vision ENT: Denies dizziness, Denies headache(s) and Denies neck pain Cardiovascular: Cardiovascular: Denies chest pain and Denies dyspnea Respiratory: Respiratory: Denies cough and Denies dyspnea Gastrointestinal: Gastrointestinal: Denies abdominal pain, Reports nausea and Reports vomiting Musculoskeletal: Musculoskeletal: Denies neck pain Neurologic: Denies dizziness and Denies headache(s) Endocrine: Endocrine: Denies fatigue PMFSH Past Medical History Attestation statement: The following information was validated with the patient. Social History Social History Smoked in Last 30 Days: No Advance Directives: No Advance Directives Information Provided: No Do you have a plan to hurt others: No Plan Patient : No Physical Exam 2 Vital Signs: Vital Signs: Last Vital Signs Temp 98.0 F 06/17/24 02:23 Pulse 69 06/17/24 02:23 Resp 16 06/17/24 02:23 BP 110/52 L 06/17/24 02:23 Pulse Ox 98 06/17/24 02:23 O2 Del Method Room Air 06/17/24 02:23 BMI result Body Mass Index 18.1 Const: Other: Alert well-appearing Orientation/consciousness: patient oriented x3 Neck: Neck: Yes full ROM and Yes no meningeal signs Resp: Effort & Inspection: normal respiratory effort Cardio: Other: Normal peripheral perfusion Skin: Other: Warm dry no rash Neuro: Other: Legally blind left eye General: patient oriented x3, gait normal, no meningeal signs, no focal motor deficits and CN's II-XI intact bilaterally Psych: Other: Cooperative Course Reevaluation(s) Reevaluation #1: Headache resolved after migraine cocktail. I discussed with the patient that I could Center with the same medications that we gave her intravenously, she is pleased, and eager for discharge. Medications Administered Discontinued Medications Generic Name Dose Route Start Last Admin Trade Name Freq PRN Reason Stop Dose Admin Dexamethasone Sodium Phosphate 10 mg 06/16/24 23:30 06/16/24 23:37 Dexamethasone Sod Phosphate 10 Mg/Ml Vial IVPUSH 06/16/24 23:31 10 mg ONCE ONE Administration Diphenhydramine HCl 25 mg 06/16/24 23:30 06/16/24 23:37 Diphenhydramine Hcl 50 Mg/Ml Vial IVPUSH 06/16/24 23:31 25 mg ONCE ONE Administration Acetaminophen 1,000 mg in 100 mls @ 400 mls/hr 06/16/24 23:12 06/16/24 23:49 Ofirmev IV 06/16/24 23:26 Infused ONCE ONE Infusion Ketorolac Tromethamine 15 mg 06/16/24 23:30 06/16/24 23:36 Ketorolac Tromethamine 15 Mg/Ml Vial IVPUSH 06/16/24 23:31 15 mg ONCE ONE Administration Prochlorperazine Edisylate 10 mg 06/16/24 23:30 06/16/24 23:37 Prochlorperazine Edisylate 10 Mg/2 Ml Vial IVPUSH 06/16/24 23:31 10 mg ONCE ONE Administration Medical Decision Making Medical Decision Making [facility] Narrative: 28-year-old female with chronic headaches presents with a headache x1 week. Headache is right-sided, retro-orbital, severe. It has been constant for the past week. Associated phonophobia, photophobia, dizziness and nausea. Patient does state the headache improved to some degree when she takes [id number] Tylenol, but then returns. Denies neck pain, recent illness, cough or cold symptoms, fever. Patient states she has had extensive assessment in the past by Neurology, they have not determine the nature of her headaches; she has been struggling with her headaches for 3 years. Problem: Chronic headaches History: Per patient I have considered the following differential diagnoses: Intracranial hemorrhage, migraine, meningitis, tension headache Plan: Patient here with a migraine type headache, she has chronic headaches, we will treat with a migraine cocktail. Screening labs and a head CT were ordered from triage. I have no suspicion for intracranial hemorrhage, there was no trauma, she is neurologically intact, she is not actively vomiting or altered. This is not meningitis, she has no meningeal signs on exam, no complaint of neck pain, she has not had recent illness and is afebrile. I I have independently reviewed the following tests: Labs: No leukocytosis, not anemic, no electrolyte abnormality not , viral panel negative urine not infected CT head: CT/CT head/brain wo IV con IMPRESSION: Unremarkable unenhanced head CT. Lab Data 06/16/24 16:45 06/16/24 16:45 Labs: Lab Results 06/16/24 Range/Units 16:45 WBC 2.9 L (4.8-10.8) X10*3/uL RBC 4.35 (4.20-5.50) X10*6/uL Hgb 11.1 L (12.0-16.0) g/dl Hct 34.4 L (37.0-47.0) % MCV 79.1 L (80.0-98.0) fL MCH 25.5 L (27.0-33.0) pg MCHC 32.3 (31.0-35.0) g/dl RDW 17.6 H (11.0-16.0) % Plt Count 149 L (160-400) X10*3/uL MPV 9.5 (9.4-12.3) fL Immature Gran % (Auto) 0.3 (0.0-0.4) % Neut % (Auto) 58.7 (45-73) % Lymph % (Auto) 22.1 (20-40) % Cass % (Auto) 13.8 H (2-11) % Eos % (Auto) 4.8 H (0-4) % Baso % (Auto) 0.3 (0-2) % Lymph # (Auto) 0.6 L (1.2-4.9) X10*3/uL Cass # (Auto) 0.4 (0.1-1.2) X10*3/uL Eos # (Auto) 0.1 (0.0-0.4) X10*3/uL Baso # (Auto) 0.0 (0.0-0.2) X10*3/uL Abs Immat Gran (auto) 0.01 (0.00-0.03) X10*3/uL Absolute Neuts (auto) 1.7 L (2.0-8.3) x10*3/uL Absolute Nucleated RBC 0.000 (0.0-0.012) X10*3/uL Nucleated RBC % (auto) 0.0 (0.0-0.2) /100WBC Sodium 140 (135-145) mmol/L Potassium 3.9 (3.3-5.1) mmol/L Chloride 109 H (96-108) mmol/L Carbon Dioxide 25 (22-29) mmol/L Anion Gap 10 L (12-20) BUN 16 (9-16) mg/dL Creatinine 0.63 (0.5-1.4) mg/dL Estim Creat Clear Calc 106.1 Estimated GFR > 60 Random Glucose 101 (60-115) mg/dL Calcium 8.7 (8.4-10.2) mg/dL Magnesium 2.4 (1.6-2.6) mg/dL Total Bilirubin 0.3 (0.0-1.0) mg/dL AST 18 (5-31) U/L ALT 19 (0-31) U/L Alkaline Phosphatase 44 (39-117) U/L Total Protein 7.4 (6.5-8.0) g/dL Albumin 4.1 (3.5-5.0) g/dL Beta HCG, Quant < 2 mIU/mL Influenza Type A (PCR) NEGATIVE (Negative) Influenza Type B (PCR) NEGATIVE (Negative) RSV RNA Qual (PCR) NEGATIVE (Negative) SARS-CoV-2 RNA (RT-PCR) NEGATIVE (Negative) Discharge Plan Discharge Clinical Impression: Headache Patient Disposition: Home, Self-Care Instructions: General Headache (ED) Additional Instructions: You were treated for a migraine type headache that resolved with our therapy. Use the following medications, all at one time, when you develop this type of the headache, see the dosing below: Ketorolac 10 mg Tylenol 1000 mg OTC Compazine 10 mg Benadryl 25 mg OTC The above headache regimen can be repeated every 8 hours. Continue to follow up with your specialists that manage your headaches. Prescriptions: New ketorolac 10 mg tablet 10 mg PO Q6H PRN (Reason: pain) Qty: 20 0RF Rx Instructions: maximum total duration of 5 days from all oral, intranasal, or parenteral formulations. The patient received an IV dose of Toradol here in the emergency department prochlorperazine maleate [Compazine] 10 mg tablet 10 mg PO Q8H PRN (Reason: nausea and vomiting) Qty: 10 0RF No Action omeprazole 40 mg capsule,delayed release(DR/EC) 40 mg PO DAILY Qty: 30 0RF sucralfate 1 gram tablet 1 g PO TID Qty: 90 0RF Stand Alone Forms: Work/School Release Interventions: ED Discharge Assessment Last Done: 06/17/24 02:23 Discharge Date/Time: 06/17/24 02:25 Print Language: Jordanian
[2024-06-17 02:23] VITALS: BP 110/52; PULSE 69; RESP 16; TEMP 36.7; O2SAT 98
== END 2024-06-17 02:25 | disposition home or self-care (01) ==
PROVIDERS: Physician Assistant Medical; Emergency Provider Emergency Medicine; PCP Internal Medicine
DX: R51.9 Headache, unspecified (principal); Z03.818 Encounter for observation for suspected exposure to other biological agents ruled out; R11.2 Nausea with vomiting, unspecified
CPT/HCPCS: 0241U; 36415; 70450; 80053; 83735; 84702; 85025; 96365; 96375; 99284; 99285; J0131; J0737; J1100; J1200; J1885

== ENCOUNTER → 2024-06-16 14:30 | Outpatient (BNV) | payer OTHER, SELFPAY | PROVIDERS: PCP Internal Medicine; Visit Provider Radiology Diagnostic Radiology | DX: R51.9 Headache, unspecified (principal) | CPT/HCPCS: 70450 ==

== ENCOUNTER 2024-09-03 08:55 | Emergency (ER) | payer OTHER, SELFPAY ==
[2024-09-03 09:08] VITALS: BP 127/75; PULSE 77; RESP 16; TEMP 36.6; O2SAT 99; BMI 21.0
--- NOTE | 2024-09-03 10:01 | ED.FEMALEGU ---
HPI - Female Genitourinary General Chief complaint: Urogenital-Female Stated complaint: Vaginal pain Time Seen by Provider: 09/03/24 11:13 Source: patient Mode of arrival: ambulatory Limitations: no limitations History of Present Illness ED Provider: CAMPOS ACEVEDO PA-C HPI Narrative: 28 year old female with no significant pmhx presents to the ED today for evaluation of cyst x2 days. Reports feeling a ball outside the vagina along her right labia. This began shortly after having intercourse. No drainage from the area. States she is currently sexually active with her . No new sexual partners. No recent shaving. Denies fever, N/V/D, dysuria, hematuria, vaginal discharge. Reports mild headache. She has an appointment with her OBGYN in 1 week. Related Data Previous Rx's ?Medication ?Instructions ?Recorded omeprazole 40 mg capsule,delayed 40 mg PO DAILY #30 caps 06/16/24 release sucralfate 1 gram tablet 1 g PO TID #90 tabs 06/16/24 ketorolac 10 mg tablet 10 mg PO Q6H PRN pain #20 tabs 06/17/24 prochlorperazine maleate 10 mg 10 mg PO Q8H PRN nausea and 06/17/24 tablet (Compazine) vomiting #10 tabs cephalexin 500 mg capsule 500 mg PO TID 7 days #21 caps 09/03/24 doxycycline monohydrate 100 mg 100 mg PO BID 7 days #14 caps 09/03/24 capsule Allergies Allergy/AdvReac Type Severity Reaction Status Date / Time No Known Allergies Allergy Verified 09/03/24 09:11 Review of Systems Review of Systems: Yes all other systems are reviewed and are negative [facility] Past Medical History Attestation statement: The following information was validated with the patient. Source: old records reviewed and nursing notes reviewed Social History Social History Smoked in Last 30 Days: No Use of substances other than those prescribed or required for medical reasons: No Advance Directives: No Advance Directives Information Provided: Yes Do you have a plan to hurt others: No Plan Physical Exam Vital Signs: Vital Signs: Last Vital Signs Temp 98.7 F 09/03/24 10:51 Pulse 91 09/03/24 10:51 Resp 16 09/03/24 10:51 BP 113/68 09/03/24 10:51 Pulse Ox 92 09/03/24 10:51 O2 Del Method Room Air 09/03/24 10:51 BMI result Body Mass Index 21.0 Vital signs stable, afebrile General: Well appearing, in no acute distress. Skin: Warm, dry, intact. No rashes or lesions. Head: Normocephalic, atraumatic. EENT: Hearing is intact b/l. Conjunctiva clear. Sclera is anicteric. PERRLA. EOM intact. Moist mucous membranes.? Cardiac: Chest wall symmetric Lungs: Normal respiratory effort without accessory muscle use. CTA bilaterally Abdomen: Soft, non-tender, non-distended. No rebound tenderness or guarding. Positive BS x4. : Sensitive exam performed with Dorothy SIMS student present in room with patient's permission. External genitalia is normal in appearance without lesions, swelling, obvious masses. small palpable area of induration noted to posterior aspect of right labia majora, no warmth or fluctuance. no pointing. no drainage. Pelvic exam deferred. Ext: Upper and lower extremities atraumatic, without tenderness, deformity, swelling or erythema Neuro: AOx3. Normal speech. Ambulating with steady gait. : Female genitals images: 1. small palpable area of induration, no warmth or fluctuance. no pointing. no drainage. Course Course Course Narrative: 28 yo female no PMH here with cyst x 2 days she feels a ball outside the vagina, no new sexual partners. No fevers, n/v/d. Has mild headache. She denies any other symptoms. At this time will obtain UA, CTNG, needs pelvic exam. this is a RAPID medical screening exam the rest of the history and physical exam is to be done by the main provider. MILES 09/03/24 10am Reevaluation(s) Reevaluation #1: 1152 -- UA without infection. CT/NG pending - patient will be contacted with any positive results. Pelvic exam deferred as patient is physical exam is consistent with Bartholin cyst without evidence of active abscess or drainable fluid collection. Area is indurated. patient was treated with toradol in ED. will start her on keflex and doxy. advised sitz baths/ warm compresses. she has f/u with OBGYN in 6 days. Patient has remained stable throughout ED visit today. Discussed worrisome signs and symptoms and when to return to the ED. All questions answered at this time. Patient is agreeable with disposition and stable for discharge. Medical Decision Making Medical Decision Making [facility] Narrative: 28 year old female with no significant pmhx presents to the ED today for evaluation of cyst x2 days. vital signs stable, afebrile. she is well appearing and in NAD. lying comfortably on exam bed. Sensitive exam performed with Dorothy SIMS student present in room with patient's permission. External genitalia is normal in appearance without lesions, swelling, obvious masses. small palpable area of induration noted to posterior aspect of right labia majora, no warmth or fluctuance. no pointing. no drainage. Pelvic exam deferred. Differential diagnosis includes bartholins cyst v abscess, cellulitis, STD, UTI, folliculitis UA, CT/NG obtained from triage. will review. Differential Diagnosis Differential Diagnoses: The differential diagnosis associated with the presentation includes as above. Admission/Observation not indicated Lab Data [facility] Lab Attestation statement: I reviewed the patient's lab results. as above. Labs: Lab Results 09/03/24 Range/Units 10:06 Urine Color Yellow Urine Appearance Clear Urine pH 6.0 (5.0-9.0) Ur Specific [place] >= 1.030 H (1.005-1.025) Urine Protein Trace (Neg-Trace) mg/dL Urine Glucose (UA) Negative (Negative) mg/dL Urine Ketones Negative (Negative) mg/dL Urine Blood Negative (Negative) Urine Nitrite Negative (Negative) Ur Leukocyte Esterase Negative (Negative) Urine Test NEGATIVE (NEGATIVE) Prescription Management I considered prescription management with: Pain Medication and Antibiotic (keflex, doxycycline) Social Determinants Patient?s care significantly limited by Social Determinants of Health including: Other Social Determinant of Health Critical Care Time Critical Care Time Critical Care Time: No Discharge Plan Discharge Clinical Impression: Bartholin's cyst Patient Disposition: Home, Self-Care Instructions: Cephalexin (By mouth) (Bio-Cef, Keflex), Doxycycline (By mouth), Bartholin Cyst (ED), Sitz Bath (DC) Additional Instructions: You were evaluated in the ED today for a vaginal cyst. Please keep the area surrounding the cyst clean and dry. There is concern for infection however there is no drainable collection of fluid to drain in ED today. You will be given a prescription for antibiotics (Keflex and Doxycycline). Please take the antibiotics as directed for the full course of the medication. If the cyst progresses to an abscess, you may have to have the abscess incised and drained. On doxycycline, do not take pills immediately before going to bed and swallow pills with plenty of water. Avoid direct sunlight, iron, antacids, and Pepto Bismol. Call your provider if you develop new ringing in your ears, new problems hearing, dizziness, difficulty swallowing, rash, abdominal discomfort, nausea, or diarrhea. On a cephalosporin?antibiotic (keflex) softer bowel movements are to be expected. Call your provider if you move your bowels more than 4 times a day, your bowel movements are almost all liquid, or you get a rash.? I recommend you take 600mg ibuprofen every 6 hours or Tylenol 650mg every 6 hours as needed for pain. If needed, you can alternate these medications so that you take one medication every 3 hours. For example, at noon take ibuprofen, then at 3pm take Tylenol, then at 6pm take ibuprofen. I advise sitz baths (see home care instructions) and warm compresses. Please schedule an appointment with your primary care provider as soon as possible for follow up. You have also been provided with a referral to a general surgeon. You may call them to establish care. They will not call you. Return to the Emergency Department if you experience fevers greater than 100.4F, increase in area of redness or swelling, increasing amount of discharge from the area, increased tenderness around the area, or any other concerning symptoms. Prescriptions: New doxycycline monohydrate 100 mg capsule 100 mg PO BID 7 Days Qty: 14 0RF cephalexin 500 mg capsule 500 mg PO TID 7 Days Qty: 21 0RF No Action omeprazole 40 mg capsule,delayed release(DR/EC) 40 mg PO DAILY Qty: 30 0RF sucralfate 1 gram tablet 1 g PO TID Qty: 90 0RF ketorolac 10 mg tablet 10 mg PO Q6H PRN (Reason: pain) Qty: 20 0RF Rx Instructions: maximum total duration of 5 days from all oral, intranasal, or parenteral formulations. The patient received an IV dose of Toradol here in the emergency department prochlorperazine maleate [Compazine] 10 mg tablet 10 mg PO Q8H PRN (Reason: nausea and vomiting) Qty: 10 0RF Referrals: [facility] [Provider Group] Ritchie Diane MD [Primary Care Provider] - Stand Alone Forms: Work/School Release Discharge Date/Time: 09/03/24 11:52 Print Language: Hebrew
[2024-09-03 10:16] LABS: Appearance Urine Clear; Color Urine Yellow; Glucose Urine UA Negative (Negative); Leukocyte Esterase Urine Negative (Negative); Nitrite Urine Negative (Negative); Specific Gravity - Urine >= 1.030 (1.005-1.025); UPreg QC Valid YES; Urine Blood Negative (Negative); Urine Ketones Negative (Negative); Urine Pregnancy NEGATIVE (NEGATIVE); Urine Protein Trace mg/dL (Neg-Trace)
[2024-09-03 10:51] VITALS: BP 113/68; PULSE 91; RESP 16; TEMP 37.1; O2SAT 92
[2024-09-03] MEDS: Doxycycline Monohydrate 100 MG CAPSULE PO (11:48)
[2024-09-03] MEDS: Ketorolac Tromethamine 30 MG/ML VIAL IM (11:49)
[2024-09-03] MEDS: cephALEXin 500 MG CAPSULE PO (11:49)
[2024-09-03 11:51] VITALS: BP 113/68; PULSE 91; RESP 16; TEMP 37.1; O2SAT 92
[2024-09-03 12:19] LABS: CT PCR NOT DETECTED (Not Detect.); NG PCR NOT DETECTED (Not Detect.)
--- OUTSIDE RECORDS SUMMARY | 2024-09-03 12:33 | XMS_ITS | Clinical Summary ---
Author Organization [facility] it Address [address] [place] [address] Care Team Providers Care Tapper Balance Wheel Screw Hole Name Role Phone Ritchie Diane MD Primary Care Provi stephen Surgical History Surgery Date Site/Laterality Comments OTHER SURGICAL HISTORY PROCEDURE: [facility]ICAL SERVICE/PROCEDURE; COMMENT: x2 in [place]. 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 MARIANNA PROCTOR(ASCP) (CASE ELECTRONICALLY SIGNED 11 06 2017) ADEQUACY: SATISFACTORY. ENDOCERVICAL/TRANSFORMATION ZONE COMPONENT PRESENT. SOURCE: THINPREP PAP HPV IF ASCUS, CERVICAL, IMAGED: CLINICAL INFORMATION: HPV IF DIAGNOSIS OF ASCUS. Z12.4, Z34.82, , PAP HX: NEGATIVE Karlene Jackson CNM LAB CYTOLOGY ORDERABLES Final Result HISTORICAL TESTING LAB RESULTING AGENCY from Last 3 Months or Most Recently Relevant to Health Maintenance Care Teams Tapper Balance Wheel Screw Hole Relationship Specialty Start Date End Date Ritchie Diane MD [address] [place] [address] [place] [address] PCP - General Internal Medicine 11/07/18
== END 2024-09-03 11:52 | disposition home or self-care (01) ==
PROVIDERS: Emergency Provider Emergency Medicine; PCP Internal Medicine
DX: N75.0 Cyst of Bartholin's gland (principal)
CPT/HCPCS: 81003; 81025; 87491; 87591; 96372; 99284; J1885